=== PATIENT | male | born 1945 | race Caucasian/White ===

== ENCOUNTER 2019-04-19 13:27 | Outpatient (REF) | payer MEDICARE, SELFPAY ==
[2019-04-19 18:48] LABS: HCT 46.3 % (40.0-50.0); HGB 14.9 g/dL (13.5-17.5); Mean Corp. HGB Concentration 32.2 g/dL (32.0-36.0); Mean Corpuscular Hemoglobin 32.3 pg (27.0-33.0); Mean Corpuscular Volume 100.2 fL (80-95); Mean Platelet Volume 11.9 fL (8.0-11.0); Platelet Count 219 x1000/uL (130-400); RBC 4.62 m/cumm (4.50-6.00); RBC Distribution Width 13.9 % (11.8-14.1); White Blood Cell Count 7.18 k/cumm (4.4-10.8)
[2019-04-19 18:59] LABS: ALT 36 U/L (16-63); AST 21 U/L (15-37); Albumin 4.1 g/dL (3.4-5.0); Alkaline Phosphatase 84 U/L (46-116); Anion Gap 9.9 mmol/L (3-11); BUN 20 mg/dL (7-18); Bilirubin, Total 0.7 mg/dL (0.2-1.0); CO2 27.1 mmol/L (21.0-32.0); Calcium 9.1 mg/dL (8.5-10.1); Calculated LDL 84 mg/dL; Chloride 105 mmol/L (98-107); Cholesterol 185 mg/dL (50-200); Glucose 93 mg/dL (70-100); HDL Cholesterol 38 mg/dL (40-60); Potassium 4.8 mmol/L (3.5-5.1); Sodium 142 mmol/L (136-145); TSH (W/Ref FT4) 4.27 uIU/mL (0.36-3.74); Total Protein 6.6 g/dL (6.4-8.2); Triglyceride 319 mg/dL (30-150)
[2019-04-19 19:29] LABS: FREE T4 0.89 ng/dL (0.76-1.46)
== END 2019-04-19 13:47 ==
LOC: NCHCN 13:27
PROVIDERS: PCP Nurse Practitioner Family; Visit Provider Nurse Practitioner Family
DX: E78.5 Hyperlipidemia, unspecified (principal); I10 Essential (primary) hypertension; E03.9 Hypothyroidism, unspecified
CPT/HCPCS: 80053; 80061; 85027; 84439; 84443

== ENCOUNTER 2020-06-19 18:42 | Outpatient (REF) | payer MEDICARE, SELFPAY ==
[2020-06-19 21:01] LABS: HCT 46.4 % (40.0-50.0); HGB 15.2 g/dL (13.5-17.5); MCH 32.7 pg (27.0-33.0); MCHC 32.8 % (32.0-36.0); MCV 99.8 fL (80-95); MPV 10.6 fL (8.0-11.0); Platelet Count 218 10^3/uL (130-400); RBC 4.65 10^6/uL (4.36-5.78); RDW-SD 47.8 fL; WBC 6.98 10^3/uL (4.4-10.8)
[2020-06-19 21:49] LABS: ALT 27 U/L (16-63); AST 20 U/L (15-37); Albumin 3.8 g/dL (3.4-5.0); Alkaline Phosphatase 88 U/L (46-116); Anion Gap 8.3 mmol/L (3-11); BUN 14 mg/dL (7-18); Bilirubin, Total 0.6 mg/dL (0.2-1.0); CO2 28.7 mmol/L (21.0-32.0); CREATININE 1.21 mg/dL (0.70-1.30); Calcium 8.8 mg/dL (8.5-10.1); Chloride 104 mmol/L (98-107); Estimated GFR 58.78 (mL/min/1.73m2); Folate 5.4 ng/mL (8.6-20.0); Glucose 88 mg/dL (74-106); Potassium 4.1 mmol/L (3.5-5.1); Sodium 141 mmol/L (136-145); TSH (W/Ref FT4) 2.52 uIU/mL (0.36-3.74); Total Protein 6.4 g/dL (6.4-8.2); Vitamin B12 455 pg/mL (193-986)
[2020-06-23 09:29] LABS: Syphilis Total Ab w/Reflex Nonreactive (Nonreactive)
[2020-06-23 12:05] LABS: HIV-1/2 Ag & Ab Screen Negative (Negative)
[2020-07-07 15:15] LABS: Hepatitis C Ab w Rflx HCV PCR Negative (Negative)
== END 2020-06-19 19:02 ==
LOC: NCHCN 18:42
PROVIDERS: PCP Nurse Practitioner; Visit Provider Nurse Practitioner Family
DX: E78.5 Hyperlipidemia, unspecified (principal); I10 Essential (primary) hypertension; E03.9 Hypothyroidism, unspecified; R79.89 Other specified abnormal findings of blood chemistry; R29.6 Repeated falls; F03.90 Unspecified dementia, unspecified severity, without behavioral disturbance, psychotic disturbance, mood disturbance, and anxiety
CPT/HCPCS: 80053; 85027; 86803; 87389; 82607; 82746; 83036; 84443; 86592; 86780

== ENCOUNTER 2022-10-12 02:57 | Outpatient (CLI) | payer MEDICARE, SELFPAY ==
[2022-10-12 09:14] LABS: HCT 43.2 % (40.0-50.0); HGB 13.6 g/dL (13.5-17.5); MCH 30.6 pg (27.0-33.0); MCHC 31.5 % (32.0-36.0); MCV 97 fL (80-95); MPV 10.6 fL (8.0-11.0); Platelet Count 308 10^3/uL (130-400); RBC 4.45 10^6/uL (4.36-5.78); RDW 14.3 % (11.8-14.1); RDW-SD 51.5 fL; WBC 8.64 10^3/uL (4.4-10.8)
[2022-10-12 12:20] LABS: ALT 30 U/L (16-63); AST 19 U/L (15-37); Albumin 4.1 g/dL (3.4-5.0); Alkaline Phosphatase 79 U/L (46-116); Anion Gap 8.5 mmol/L (3-11); BUN 15 mg/dL (7-18); Bilirubin, Total 0.3 mg/dL (0.2-1.0); CO2 28.5 mmol/L (21.0-32.0); CREATININE 1.3 mg/dL (0.70-1.30); Calcium 9.5 mg/dL (8.5-10.1); Calculated LDL 137 mg/dL (<100); Chloride 106 mmol/L (98-107); Cholesterol 216 mg/dL (<200); Estimated GFR 56.93 (mL/min/1.73m2); Folate 6.3 ng/mL (8.6-20.0); Glucose 108 mg/dL (74-106); HDL Cholesterol 54 mg/dL (40-60); Potassium 3.9 mmol/L (3.5-5.1); Sodium 143 mmol/L (136-145); TSH (W/Ref FT4) 11.74 uIU/mL (0.36-3.74); Total Protein 7.3 g/dL (6.4-8.2); Triglyceride 129 mg/dL (<150); Vitamin B12 496 pg/mL (193-986)
[2022-10-12 12:44] LABS: FREE T4 0.88 ng/dL (0.76-1.46)
== END 2022-10-12 02:58 | disposition home or self-care (01) ==
LOC: LBO 02:57
PROVIDERS: PCP Nurse Practitioner Family; Visit Provider Nurse Practitioner Family
DX: E78.5 Hyperlipidemia, unspecified (principal); F03.90 Unspecified dementia, unspecified severity, without behavioral disturbance, psychotic disturbance, mood disturbance, and anxiety; E03.8 Other specified hypothyroidism
CPT/HCPCS: 36415; 80053; 80061; 85027; 82607; 82746; 84439; 84443

== ENCOUNTER 2022-11-23 11:30 | Emergency (ER) | payer MEDICARE, SELFPAY ==
--- NOTE | 2022-11-23 11:30 | DI.CT_ITS ---
Exam(s) CT HEAD WO EXAM: CT HEAD WO CLINICAL HISTORY: ams, head injury. TECHNIQUE: Imaging Protocol: Axial computed tomography images with coronal and sagittal reformatted images were created and reviewed COMPARISON: CT HEAD WITH/WITHOUT CONTRAST from 09/10/2010 FINDINGS: Ventricles and Extra axial spaces: Normal in size and morphology for the patient's age. Hemorrhage: None. Cerebral parenchyma: There is no evidence of an acute territorial infarct. Encephalomalacia is again seen in both frontal lobes. Midline shift: None. Brainstem/Cerebellum: Normal. Calvarium: The patient has had a bilateral frontal craniotomy. No cranial fracture is seen. Visualized Paranasal sinuses/Mastoids: Clear. Soft Tissues: Soft tissue swelling and subcutaneous air is seen in the right cheek. IMPRESSION: 1. No acute intracranial process. 2. Soft tissue swelling and subcutaneous air in the right cheek. 3. Findings were discussed with Dr. Lamas at 12:43 p.m. on 11/23/2022. RADIATION DOSE DELIVERED: 731.54mGy.cm Total DLP DATA REPOSITORY: All CT scans at this facility are submitted to the National Radiology Data Registry (NRDR) Dose Index Registry (DIR) with the [employer] (ACR). RADIATION OPTIMIZATION: All CT scans at this facility use at least one of these dose optimization te chniques: automated exposure control; mA and/or kV adjustment per patient size (includes targeted exa ms where dose is matched to clinical indication); or iterative reconstruction.
--- NOTE | 2022-11-23 11:30 | RT.EKG_ITS ---
APPROVED REPORT Exam: Resting ECG Reason for Exam: passed out Patient Location: E HR:78 bpm ECG Measurements Heart Rate 78 AXIS KS 214 P 50 QRSd 87 QRS 33 QT 419 T 42 QTc 459 Conclusion Sinus rhythm...normal P axis, V-rate 60- 99 Atrial premature complex...SV complex w/ short R-R interval Borderline prolonged KS interval...KS >212, V-rate 50- 90 sinus rhythm, normal axis, PACs
[2022-11-23 11:32] VITALS: BP 159/93; PULSE 69; RESP 15; TEMP 37.1; O2SAT 96
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
[2022-11-23] MEDS: Normal Saline 500 ML 1000 ML IV (12:01)
[2022-11-23 12:04] LABS: Abs Immature Grans 0.03 10^3/uL (0.0-0.06); Absolute Basophil Count 0.03 10^3/uL (0.0-0.2); Absolute Eosinophil Count 0.17 10^3/uL (0.0-0.7); Absolute Lymphocyte Count 0.51 10^3/uL (1.2-3.4); Absolute Monocyte Count 0.54 10^3/uL (0.1-0.8); Absolute Neutrophil Count 6.27 10^3/uL (1.2-6.7); Basophils % 0.4; Eosinophils % 2.3; HCT 47.8 % (40.0-50.0); HGB 15.3 g/dL (13.5-17.5); Immature Grans % 0.4; Lymphocytes % 6.8; MCV 91 fL (80-95); MPV 10.4 fL (8.0-11.0); Monocytes % 7.2; Neutrophils % 82.9; Platelet Count 183 10^3/uL (130-400); RBC 5.27 10^6/uL (4.36-5.78); RDW 14.7 % (11.8-14.1); RDW-SD 48.8 fL; WBC 7.55 10^3/uL (4.4-10.8)
--- NOTE | 2022-11-23 12:36 | DI.RAD_ITS ---
Exam(s) XR CHEST 2V PA LATERAL EXAM: XR CHEST 2V PA LATERAL CLINICAL HISTORY: fall, ams TECHNIQUE: 2D digital imaging was performed of the chest. Three images were obtained. PA and later al views were obtained. COMPARISON: CR CHEST 2 VIEWS PA,LAT from 07/23/2010 FINDINGS: MEDIASTINUM: Normal. HEART: Normal. PULMONARY VASCULATURE: Normal. LUNGS: Clear. PLEURAL SPACE: No pleural effusion or pneumothorax. BONE:Within normal limits for the patient's age. There is an old healed right clavicular fracture. Postsurgical changes are seen in the left humeral head. OTHER FINDINGS:Normal. IMPRESSION: No acute pulmonary findings. DATA REPOSITORY: RADIATION DOSE DELIVERED:
[2022-11-23 12:38] LABS: ALT 29 U/L (16-63); AST 23 U/L (15-37); Albumin 4.1 g/dL (3.4-5.0); Alkaline Phosphatase 81 U/L (46-116); Anion Gap 6.8 mmol/L (3-11); BUN 12 mg/dL (7-18); Bilirubin, Total 0.4 mg/dL (0.2-1.0); CO2 30.2 mmol/L (21.0-32.0); CREATININE 1.2 mg/dL (0.70-1.30); Calcium 9.5 mg/dL (8.5-10.1); Chloride 103 mmol/L (98-107); Creatine Kinase 230 U/L (39-308); Estimated GFR 62.67 (mL/min/1.73m2); Glucose 107 mg/dL (74-106); Potassium 3.7 mmol/L (3.5-5.1); Sodium 140 mmol/L (136-145); TSH (W/Ref FT4) 8.46 uIU/mL (0.36-3.74); Total Protein 7.6 g/dL (6.4-8.2)
[2022-11-23 12:56] LABS: FREE T4 0.81 ng/dL (0.76-1.46)
[2022-11-23 13:12] LABS: ETHANOL BLOOD < 3.0 mg/dL (<10)
--- NOTE | 2022-11-24 07:50 | NUR.NOTE ---
Nursing Note: Accessed patient chart to determine how many EKG orders were in the chart from the ED. There was an outstanding EKG in ordered status. There are no EKG's in the [employer] system that are outstanding. EKG order was deleted.
== END 2022-11-23 14:04 | disposition home or self-care (01) ==
PROVIDERS: Emergency Provider Emergency Medicine; PCP Nurse Practitioner Family
DX: I10 Essential (primary) hypertension (principal); R41.82 Altered mental status, unspecified; F03.90 Unspecified dementia, unspecified severity, without behavioral disturbance, psychotic disturbance, mood disturbance, and anxiety; E78.5 Hyperlipidemia, unspecified
CPT/HCPCS: 80053; 82550; 93005; 99284; 70450; 71046; 80320; 84439; 84443; 85025; 93010; 99285

== ENCOUNTER 2023-10-02 20:19 | Emergency (ER) | payer MEDICARE, SELFPAY ==
[2023-10-02] VITALS (33 sets, daily range): BP systolic 109–212; BP diastolic 66–121; PULSE 90–121; RESP 16–41; TEMP 36.7; O2SAT 80–100
--- NOTE | 2023-10-02 20:15 | RT.EKG_ITS ---
APPROVED REPORT Exam: Resting ECG Reason for Exam: fall Patient Location: E HR:107 bpm ECG Measurements Heart Rate 107 AXIS MT 182 P 59 QRSd 87 QRS 30 QT 362 T 65 QTc 484 Conclusion Sinus tachycardia...rate> 99 sinus tachycardia, normal axis, normal intervals, PAC and PVC
[2023-10-02] MEDS: LORazepam 2 MG/ML VIAL ×2 (20:30→20:53)
[2023-10-02] MEDS: LORazepam 2 MG/ML VIAL 1 MG IVP (20:40)
[2023-10-02 20:46] LABS: Abs Immature Grans 0.09 10^3/uL (0.0-0.06); Absolute Basophil Count 0.04 10^3/uL (0.0-0.2); Absolute Eosinophil Count 0.19 10^3/uL (0.0-0.7); Absolute Lymphocyte Count 1.12 10^3/uL (1.2-3.4); Absolute Monocyte Count 0.53 10^3/uL (0.1-0.8); Absolute Neutrophil Count 8.55 10^3/uL (1.2-6.7); Basophils % 0.4; Eosinophils % 1.8; HCT 46.2 % (40.0-50.0); Immature Grans % 0.9; Lymphocytes % 10.6; MCH 31.5 pg (27.0-33.0); MCHC 32.5 % (32.0-36.0); MCV 97 fL (80-95); MPV 10.9 fL (8.0-11.0); Neutrophils % 81.3; Platelet Count 242 10^3/uL (130-400); RBC 4.76 10^6/uL (4.36-5.78); RDW 13.5 % (11.8-14.1); RDW-SD 48.5 fL; WBC 10.52 10^3/uL (4.4-10.8)
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
[2023-10-02] MEDS: levETIRAcetam 1,000 MG in Normal Saline 100 ML 400 MG IVPB ×2 (20:48→23:53)
[2023-10-02 21:12] LABS: ALT 35 U/L (16-63); AST 20 U/L (15-37); Albumin 3.8 g/dL (3.4-5.0); Alkaline Phosphatase 82 U/L (46-116); Anion Gap 19.7 mmol/L (3-11); BUN 16 mg/dL (7-18); Bilirubin, Total 0.5 mg/dL (0.2-1.0); CO2 18.3 mmol/L (21.0-32.0); CREATININE 1.4 mg/dL (0.70-1.30); Calcium 8.7 mg/dL (8.5-10.1); Chloride 98 mmol/L (98-107); Creatine Kinase 87 U/L (39-308); Estimated GFR 51.77 (mL/min/1.73m2); Glucose 152 mg/dL (74-106); Magnesium 2.1 mg/dL (1.8-2.4); Potassium 3.3 mmol/L (3.5-5.1); Sodium 136 mmol/L (136-145); TSH (W/Ref FT4) 8.57 uIU/mL (0.36-3.74); Total Protein 7.2 g/dL (6.4-8.2)
[2023-10-02 21:13] LABS: Salicylate < 2.8 mg/dL (<2.8)
[2023-10-02 21:15] LABS: Acetaminophen < 2 ug/mL (10-30)
[2023-10-02 21:27] LABS: ETHANOL BLOOD < 3.0 mg/dL (<10)
--- NOTE | 2023-10-02 21:36 | DI.CT_ITS ---
Exam(s) CT HEAD CERVICAL SPINE WO EXAM: CT HEAD CERVICAL SPINE WO CLINICAL HISTORY: seziure. TECHNIQUE: Imaging Protocol: Axial computed tomography images with coronal and sagittal reformatted images were created and reviewed COMPARISON: CT HEAD WITH/WITHOUT CONTRAST from 09/10/[address] HEAD WO from 11/23/2022 FINDINGS: The examination is limited due to patient motion artifact. CT Head: Ventricles and Extra axial spaces: Normal in size and morphology for the patient's age. Hemorrhage: None. Cerebral parenchyma: There is an old infarct in the medial aspect of the right occipital lobe. There are again seen large areas of encephalomalacia in the frontal lobes bilaterally which are stable. N o acute mass effect. Midline shift: None. Brainstem/Cerebellum: Normal. Calvarium: Frontal craniotomy is again seen. No acute fracture. Visualized Paranasal sinuses/Mastoids: Clear. Soft Tissues: Unremarkable. A nasal tube is in place. CT Cervical Spine: Bones: No acute fracture or subluxation. Age-related degenerative changes are seen in the cervical sp ine. Soft Tissues: Unremarkable. Lung Apices: Clear. IMPRESSION: 1. No acute intracranial process. 2. No acute fracture or subluxation in the cervical spine. RADIATION DOSE DELIVERED: 1,257.74mGy.cm Total DLP DATA REPOSITORY: All CT scans at this facility are submitted to the National Radiology Data Registry (NRDR) Dose Index Registry (DIR) with the [employer] (ACR). RADIATION OPTIMIZATION: All CT scans at this facility use at least one of these dose optimization te chniques: automated exposure control; mA and/or kV adjustment per patient size (includes targeted exa ms where dose is matched to clinical indication); or iterative reconstruction.
--- NOTE | 2023-10-02 21:36 | DI.RAD_ITS ---
Exam(s) XR CHEST 1V IN DI DEPT EXAM: XR CHEST 1V IN DI DEPT CLINICAL HISTORY: seizure TECHNIQUE: 2D digital imaging was performed of the chest. One image was obtained. An AP view was ob tained. COMPARISON: CR XR CHEST 2V PA LATERAL from 11/23/2022 FINDINGS: MEDIASTINUM: Normal. HEART: Normal. PULMONARY VASCULATURE: Normal. LUNGS: Clear. PLEURAL SPACE: No pleural effusion or pneumothorax. BONE:Within normal limits for the patient's age. Old right healed clavicular fracture. OTHER FINDINGS:Normal. IMPRESSION: No acute pulmonary findings. DATA REPOSITORY: RADIATION DOSE DELIVERED:
--- NOTE | 2023-10-02 21:36 | DI.RAD_ITS ---
Exam(s) XR PELVIS AP EXAM: XR PELVIS AP CLINICAL HISTORY: fall seizure. TECHNIQUE: 2D digital imaging was performed.One images were obtained. COMPARISON: No exams were available for comparison FINDINGS: BONES: No acute fracture is present. No bony destructive lesion is seen. JOINTS: No dislocation present. Degenerative changes are seen in the hips bilaterally which are mild. There also mild degenerative changes seen in the lower visualized lumbar spine in the sacroiliac sigrid ints. The symphysis pubis is intact. SOFT TISSUE: Normal. IMPRESSION: No acute fracture or dislocation. DATA REPOSITORY: RADIATION DOSE DELIVERED:
[2023-10-02 21:43] LABS: FREE T4 0.94 ng/dL (0.76-1.46)
[2023-10-02 21:59] LABS: Bilirubin Negative (Negative); Blood Small (Negative); Clarity Clear (Clear); Glucose Negative (Negative); Ketones Negative (Negative); Leukocyte Esterase Negative (Negative); Nitrite Negative (Negative); Urobilinogen 0.2 mg/dL (Up to 0.2); pH 5.5 (5-8)
--- NOTE | 2023-10-02 22:02 | DI.VRAD_ITS ---
PROCEDURE INFORMATION: Exam: CT Head Without Contrast Exam date and time: 10/02/2023 9:15 PM Age: 78 years old Clinical indication: Injury or trauma; Blunt trauma (contusions or hematomas); Consciousness not specified; Patient HX: Fall, seizure TECHNIQUE: Imaging protocol: Computed tomography of the head without contrast. Radiation optimization: All CT scans at this facility use at least one of these dose optimization techniques: automated exposure control; mA and/or kV adjustment per patient size (includes targeted exams where dose is matched to clinical indication); or iterative reconstruction. COMPARISON: CT HEAD WO 11/23/2022 12:16 PM FINDINGS: Brain: Bifrontal encephalomalacia, unchanged. No intracranial hemorrhage, midline shift, or mass effect. No acute loss of cat-white differentiation. Cerebral ventricles: Ex vacuo dilatation of bilateral lateral ventricle anterior horns. Paranasal sinuses: Visualized sinuses are unremarkable. No fluid levels. Mastoid air cells: Visualized mastoid air cells are well aerated. Nasal cavity: Nasal airway in place. Bones/joints: Postoperative and posttraumatic frontal osseous changes. No acute fracture. Soft tissues: Unremarkable. Vasculature: Calcified atherosclerotic disease. IMPRESSION: No acute abnormality. PROCEDURE INFORMATION: Exam: CT Cervical Spine Without Contrast Exam date and time: 10/02/2023 9:15 PM Age: 78 years old Clinical indication: Injury or trauma; Blunt trauma (contusions or hematomas); Consciousness not specified; Patient HX: Fall, seizure TECHNIQUE: Imaging protocol: Computed tomography of the cervical spine without contrast. Radiation optimization: All CT scans at this facility use at least one of these dose optimization techniques: automated exposure control; mA and/or kV adjustment per patient size (includes targeted exams where dose is matched to clinical indication); or iterative reconstruction. COMPARISON: CT HEAD WO 11/23/2022 12:16 PM FINDINGS: Limitations: Motion artifact in the mid cervical spine. Bones/joints: Multilevel degenerative disc disease and facet arthropathy. No acute fracture or dislocation. C2-C3: Posterior osteophytes and facet arthropathy. Mild left neural foraminal stenosis. C3-C4: Posterior osteophytes and facet arthropathy. Severe bilateral neural foraminal stenosis. C4-C5: Posterior osteophytes and facet arthropathy. Severe bilateral neural foraminal stenosis. C5-C6: Posterior osteophytes and facet arthropathy. Severe bilateral neural foraminal stenosis. C6-C7: Posterior osteophytes and facet arthropathy. Severe bilateral neural foraminal stenosis. C7-T1: Posterior osteophytes and facet arthropathy. Mild right neural foraminal stenosis. Nasal cavity and septum: Nasal airway in place. Lungs: Lung apices are normal. Vasculature: Calcified atherosclerotic disease. Soft tissues: Unremarkable. IMPRESSION: 1. No acute fracture. 2. Multilevel cervical spondylosis, detailed above. 3. Calcified atherosclerotic disease. Dictated and Authenticated by: Luiz Sheffield MD. Ordering:PAPRIL Doll MD
--- NOTE | 2023-10-02 22:02 | DI.VRAD_ITS ---
PROCEDURE INFORMATION: Exam: XR Pelvis Exam date and time: 10/02/2023 9:25 PM Age: 78 years old Clinical indication: Injury or trauma; Blunt trauma (contusions or hematomas); Bilateral; Pelvic region; Injury date: 10/02/23; Patient HX: Fall, seizure TECHNIQUE: Imaging protocol: Radiologic exam of the pelvis. Views: 1 or 2 view. COMPARISON: No relevant prior studies available. FINDINGS: Bones/joints: Mild degenerative disc changes in the lower lumbar spine. Minimal degenerative changes in both hip joints. Osseous alignment is normal. No acute fracture. Small benign-appearing exostosis along the superior rim of the right iliac crest. Soft tissues: Unremarkable. IMPRESSION: No acute abnormality Dictated and Authenticated by: Ottoniel Vee MD. Ordering:CLAUDIA Doll MD
--- NOTE | 2023-10-02 22:02 | DI.VRAD_ITS ---
PROCEDURE INFORMATION: Exam: XR Chest Exam date and time: 10/02/2023 9:22 PM Age: 78 years old Clinical indication: Injury or trauma; Blunt trauma (contusions or hematomas); Injury date: 10/02/23; Patient HX: Fall, seizure TECHNIQUE: Imaging protocol: Radiologic exam of the chest. Views: 1 view. COMPARISON: CR XR CHEST 2V PA LATERAL 11/23/2022 12:29 PM FINDINGS: Lungs: Unremarkable. No consolidation. Pleural spaces: Unremarkable. No pleural effusion. No pneumothorax. Heart/Mediastinum: Unremarkable. No cardiomegaly. Bones/joints: Degenerative changes of the spine and shoulders noted. Old, healed right clavicle and left upper rib fractures. No acute fracture evident. IMPRESSION: No acute interval change Dictated and Authenticated by: Ottoniel Vee MD. Ordering:CLAUDIA Doll MD
[2023-10-02 22:05] LABS: Epithelial Cells Negative HPF (Negative); RBC 0-2 HPF (0-2); WBC 0-2 HPF (0-5)
[2023-10-02] MEDS: Normal Saline 100 ML (22:05)
[2023-10-02] MEDS: Normal Saline 1,000 ML 1000 ML IV (22:05)
[2023-10-02 22:06] LABS: Bacteria Rare HPF (Negative); C & S Indicated? No; Crystals Negative HPF (Negative); Mucus Negative (Negative)
[2023-10-02 22:13] LABS: *AMPHETAMINES SCREEN URINE Negative (Negative); *BARBITURATES SCREEN URINE Negative (Negative); *BENZODIAZEPINES SCREEN URINE Negative (Negative); Cannabinoids THC Negative (Negative); Cocaine Screen,Urine Negative (Negative); METHADONE URINE SCREEN Negative (Negative); OPIATES URINE SCREEN Negative (Negative)
[2023-10-02 22:16] LABS: Tricyclic Antidepressants Negative (Negative)
[2023-10-03] VITALS: PULSE 98; RESP 20
[2023-10-03 00:01] VITALS: BP 165/107; PULSE 113; PULSE 97; RESP 18
[2023-10-03 00:10] VITALS: PULSE 95; RESP 20
--- NOTE | 2023-10-03 00:11 | NUR.NOTE ---
report called to neuro icu at [facility] now:
--- NOTE | 2023-10-03 00:24 | NUR.NOTE ---
pt leaving with ambulance now to [facility]
[2023-10-03 00:25] VITALS: BP 153/95; PULSE 100; RESP 24; O2SAT 98
--- NOTE | 2023-10-03 07:59 | NUR.NOTE ---
Accessed pt chart to determine number of EKG orders. Nursing Note:
--- NOTE | 2023-10-03 16:59 | NUR.NOTE ---
Accessed pt chart to find advanced directives per Lo Matute, nursing spring assembler supervisor. PRinted and faxed to her. Nursing Note:
--- NOTE | 2023-10-07 07:44 | NUR.NOTE ---
Accessed pt chart to determine who accepting physician at [facility] was for transfer. Nursing Note:
== END 2023-10-03 00:25 | disposition short-term general hospital (02) ==
PROVIDERS: Emergency Provider Emergency Medicine; PCP Nurse Practitioner Family
DX: G40.901 Epilepsy, unspecified, not intractable, with status epilepticus (principal); C61 Malignant neoplasm of prostate; I10 Essential (primary) hypertension; F03.90 Unspecified dementia, unspecified severity, without behavioral disturbance, psychotic disturbance, mood disturbance, and anxiety; S00.01XA Abrasion of scalp, initial encounter; W19.XXXA Unspecified fall, initial encounter
CPT/HCPCS: 36416; 51702; 80053; 80307; 82550; 82962; 93005; 96361; 96365; 96368; 96375; 99285; 70450; 71045; 72125; 72170; 80320; 80329; 81003; 81015; 83735; 84439; 84443; 85025; 93010; J1953; J2060; Q2009